=== PATIENT | female | born 1965 | race American Indian/Alaskan Native ===

== ENCOUNTER 2016-10-08 04:19 | Emergency (ER) | payer MEDICAID, OTHER ==
[2016-10-08 04:19] VITALS: BMI 32.5
[2016-10-08 04:40] VITALS: BP 116/74; PULSE 69; RESP 16; TEMP 98.7; O2SAT 98
--- NOTE | 2016-10-08 05:19 | ED PDOC ---
Lower Extremity Pain/Injury Time Seen by Provider: 10/08/16 04:52 Chief Complaint (Nursing): Lower Extremity Problem/Injury Chief Complaint (Provider): Heel pain History Per: Patient Additional Complaint(s): Pt is a 50 yo female, PMH of HTN. High cholesterol, Lupus and RA, presents to ED with complaints of left heel pain x3 weeks. Pt unable to bear weight, ambulates with limp. Past Medical History Reviewed: Nursing Documentation, Vital Signs Vital Signs: Last Vital Signs Temp 98.7 F 10/08/16 04:34 Pulse 69 10/08/16 04:34 Resp 16 10/08/16 04:34 BP 116/74 10/08/16 04:34 Pulse Ox 98 10/08/16 04:34 - Medical History PMH: Asthma, Colonic Polyps, Diverticulitis, Fractures (PELVIS), Gastritis, Gastrointestinal Ulcer, HTN, Hypercholesterolemia, Sleep Apnea (NO C-PAP) Denies: Chronic Kidney Disease, Seizures (DENIES; CYST ON TEMPORAL LOBE; NEVER HAD EEG DUE TO NO INSURANCE) - Surgical History Surgical History: Cholecystectomy, Endoscopy - Family History Family History: States: Unknown Family Hx - Living Arrangements Living Arrangements: With Family - Social History Current smoker - smoking cessation education provided: No Alcohol: Social Drugs: Denies - Immunization History Hx Tetanus Toxoid Vaccination: No Hx Influenza Vaccination: No Hx Pneumococcal Vaccination: No - Home Medications Home Medications: Ambulatory Orders Medication Instructions Recorded Aspirin [Aspirin Chewable] 81 mg PO DAILY #30 chew 07/04/15 Metoprolol Tartrate [Lopressor] 12.5 mg PO BID #60 tab 07/04/15 Nitroglycerin [Nitrostat] 0.4 mg SL PRN PRN 08/08/15 metroNIDAZOLE [Flagyl] 1 tab PO Q8H 08/08/15 Acetaminophen/Butalbital/Caf 1 tab PO TID PRN #20 tab 01/31/16 [Fioricet] Acetaminophen/Butalbital/Caf 1 tab PO TID PRN #20 tab 01/31/16 [Fioricet] Dicyclomine [Bentyl] 20 mg PO BID PRN #30 tab 03/04/16 Naproxen [Naprosyn] 1 tab PO BID PRN #60 tab 03/04/16 Ibuprofen [Motrin] 600 mg PO Q6 #20 tab 06/27/17 - Allergies Allergies/Adverse Reactions: Allergies Allergy/AdvReac Type Severity Reaction Status Date / Time amoxicillin Allergy Intermediate RASH Verified 03/04/16 17:48 ciprofloxacin [From Cipro] Allergy Intermediate RASH Verified 03/04/16 17:48 ciprofloxacin HCl Allergy Intermediate RASH Verified 03/04/16 17:48 [From Cipro] kiwi Allergy Intermediate RASH Verified 03/04/16 17:48 Sulfa (Sulfonamide Allergy Intermediate RASH Verified 03/04/16 17:48 Antibiotics) Review of Systems ROS Statement: Except As Marked, All Systems Reviewed And Found Negative Musculoskeletal: Positive for: Other (heel pain) Physical Exam - Reviewed Nursing Documentation Reviewed: Yes Vital Signs Reviewed: Yes - Physical Exam Appears: Positive for: Well, Non-toxic, No Acute Distress Head Exam: Positive for: ATRAUMATIC, NORMAL INSPECTION, NORMOCEPHALIC Skin: Positive for: Normal Color, Warm, DRY Eye Exam: Positive for: EOMI, Normal appearance, PERRL ENT: Positive for: Normal ENT Inspection Neck: Positive for: Normal, Painless ROM Cardiovascular/Chest: Positive for: Regular Rate, Rhythm Respiratory: Positive for: CNT, Normal Breath Sounds Gastrointestinal/Abdominal: Positive for: Normal Exam, Bowel Sounds, Soft Back: Positive for: Normal Inspection Extremity: Positive for: Normal ROM, Tenderness (to left heel). Negative for: Swelling Neurologic/Psych: Positive for: Alert, Oriented - ECG O2 Sat by Pulse Oximetry: 98 Medical Decision Making Medical Decision Making: Medicated with Motrin Po XR: (+) heel spur pt educated on results and demonstrated full understanding. Given podiatry follow up. Disposition - Clinical Impression Clinical Impression: Heel spur - Patient ED Disposition Is Patient to be Admitted: No - Disposition Referrals: Podiatry Clinic [Outside] Romeo Alvarenga MD [Primary Care Provider] - Disposition: Routine/Home Disposition Time: 05:54 Condition: STABLE Prescriptions: Ibuprofen [Motrin] 600 mg PO Q6 #20 tab Instructions: Heel Spur (ED)
--- NOTE | 2016-10-08 12:46 | RAD ---
PROCEDURE: Radiographs of the left calcaneus/hindfoot. HISTORY: pain COMPARISON: Comparison made with left foot radiographs 11/26/2009. TECHNIQUE: Frontal and lateral radiographs of the calcaneus. FINDINGS: No fracture or joint dislocation. No focal lesion. Small enthesophyte seen arising from the posterior plantar calcaneal surfaces. IMPRESSION: No evidence of acute displaced fracture nor dislocation. Small plantar and posterior calcaneal enthesophyte. If symptoms persist or occult fracture suspected clinically consider followup CT scan.
== END 2016-10-08 05:59 | disposition home or self-care (01) ==
LOC: H.ER 04:19
DX: M77.32 Calcaneal spur, left foot (principal); E78.00 Pure hypercholesterolemia, unspecified; G47.30 Sleep apnea, unspecified; I10 Essential (primary) hypertension; J45.909 Unspecified asthma, uncomplicated; Z79.82 Long term (current) use of aspirin

== ENCOUNTER 2017-02-09 09:44 | Emergency (ER) | payer OTHER ==
[2017-02-09 10:06] VITALS: BP 137/88; PULSE 72; RESP 16; TEMP 96.8; BMI 32.9
[2017-02-09 10:14] VITALS: O2SAT 98
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
--- NOTE | 2017-02-09 11:12 | RAD ---
PROCEDURE: Radiographs of the Lumbar Spine. HISTORY: Back pain COMPARISON: No prior. FINDINGS: BONES: There is normal alignment of the lumbar vertebral bodies. Lumbar lordosis is maintained. Vertebral bodies are normal in height. There is no acute fracture, spondylolysis or spondylolisthesis. Bone mineralization is normal. DISC SPACES: There is mild degenerative disc disease at L5-S1 with mild reduced disc height and facet arthropathy. The remaining disc heights are maintained. OTHER FINDINGS: There are no pathologic soft tissue calcifications. Both sacroiliac joints are normal. IMPRESSION: No acute fracture, spondylolysis or spondylolisthesis. Mild degenerative disc disease at L5-S1.
[2017-02-09 11:42] LABS: RBC URINE 4 /hpf (0-3); URINE BACTERIA RARE (<OCC); URINE BILIRUBIN NEGATIVE (NEGATIVE); URINE BLOOD NEGATIVE (NEGATIVE); URINE COLOR YELLOW (YELLOW); URINE GLUCOSE (UA) NEG (Normal); URINE KETONE NEGATIVE (NEGATIVE); URINE LEUKOCYTE ESTERASE TRACE Leu/uL (Negative); URINE PROTEIN NEGATIVE (NEGATIVE); URINE UROBILINOGEN 0.2-1.0 mg/dL (0.2-1.0)
[2017-02-09 11:48] LABS: WBC URINE 12 /hpf (0-5)
== END 2017-02-09 11:48 | disposition home or self-care (01) ==
LOC: H.ER 09:44
DX: M54.9 Dorsalgia, unspecified (principal); V43.52XA Car driver injured in collision with other type car in traffic accident, initial encounter; Y92.410 Unspecified street and highway as the place of occurrence of the external cause

== ENCOUNTER 2017-05-26 17:01 | Emergency (ER) | payer OTHER ==
[2017-05-26 17:01] VITALS: BMI 32.9
[2017-05-26 17:55] VITALS: BP 141/84; PULSE 60; RESP 20; TEMP 98.2; O2SAT 96
--- NOTE | 2017-05-26 19:23 | ED PDOC ---
HPI: General Adult Time Seen by Provider: 05/26/17 18:22 Chief Complaint (Nursing): ENT Problem Chief Complaint (Provider): ENT Problem History Per: Patient History/Exam Limitations: no limitations Additional Complaint(s): 51 y/o female presents to the ED complaining of dizziness that started when she woke up today. She feels like the room is spinning and is worse when sits up or lies down. Dizziness is associated with fullness in right ear, pain on right side of her head and nausea. She has used epidural for chronic headache in past with no side effects but she never had vertigo before. In addition she also complains about pain in left heel that has been on and off and she followed up with podiatry. Denies fever, vomiting, focal weakness, abdominal pain, urinary symptoms or any further medical complaints. PMD: Romeo Alvarenga MD Past Medical History Reviewed: Historical Data, Nursing Documentation, Vital Signs Vital Signs: Last Vital Signs Temp 98.2 F 05/26/17 17:52 Pulse 60 05/26/17 17:52 Resp 20 05/26/17 17:52 BP 141/84 05/26/17 17:52 Pulse Ox 96 05/26/17 19:27 - Medical History PMH: Arthritis, Asthma, Colonic Polyps, Diverticulitis, Fractures (PELVIS), Gastritis, Gastrointestinal Ulcer, HTN, Hypercholesterolemia, Sleep Apnea (NO C- PAP) Denies: Chronic Kidney Disease, Seizures (DENIES; CYST ON TEMPORAL LOBE; NEVER HAD EEG DUE TO NO INSURANCE) Comment Only: Hypothyroidism (?) - Surgical History Surgical History: Cholecystectomy, Endoscopy - Family History Family History: States: Unknown Family Hx - Immunization History Hx Tetanus Toxoid Vaccination: No Hx Influenza Vaccination: No Hx Pneumococcal Vaccination: No - Home Medications Home Medications: Ambulatory Orders Medication Instructions Recorded Aspirin [Aspirin Chewable] 81 mg PO DAILY #30 chew 07/04/15 Metoprolol Tartrate [Lopressor] 12.5 mg PO BID #60 tab 07/04/15 Nitroglycerin [Nitrostat] 0.4 mg SL PRN PRN 08/08/15 metroNIDAZOLE [Flagyl] 1 tab PO Q8H 08/08/15 Acetaminophen/Butalbital/Caf 1 tab PO TID PRN #20 tab 01/31/16 [Fioricet] Acetaminophen/Butalbital/Caf 1 tab PO TID PRN #20 tab 01/31/16 [Fioricet] Dicyclomine [Bentyl] 20 mg PO BID PRN #30 tab 03/04/16 Naproxen [Naprosyn] 1 tab PO BID PRN #60 tab 03/04/16 Ibuprofen [Motrin] 600 mg PO Q6 #20 tab 10/08/16 Ibuprofen [Motrin] 600 mg PO Q6 #20 tab 02/09/17 Meclizine HCl 50 mg PO BID PRN #30 tablet 05/26/17 - Allergies Allergies/Adverse Reactions: Allergies Allergy/AdvReac Type Severity Reaction Status Date / Time amoxicillin Allergy Intermediate RASH Verified 05/26/17 17:50 ciprofloxacin [From Cipro] Allergy Intermediate RASH Verified 05/26/17 17:50 ciprofloxacin HCl Allergy Intermediate RASH Verified 05/26/17 17:50 [From Cipro] kiwi Allergy Intermediate RASH Verified 05/26/17 17:50 Sulfa (Sulfonamide Allergy Intermediate RASH Verified 05/26/17 17:50 Antibiotics) Review of Systems ROS Statement: Except As Marked, All Systems Reviewed And Found Negative (As per hPI, otherwise negative) Constitutional: Negative for: Fever ENT: Positive for: Ear Pain (right) Gastrointestinal: Positive for: Nausea. Negative for: Vomiting, Abdominal Pain Genitourinary Female: Negative for: Dysuria, Frequency, Incontinence, Hematuria Neurological: Positive for: Headache (Right sided), Dizziness. Negative for: Weakness Physical Exam - Reviewed Nursing Documentation Reviewed: Yes Vital Signs Reviewed: Yes - Physical Exam Appears: Positive for: Non-toxic, No Acute Distress Head Exam: Positive for: ATRAUMATIC, NORMOCEPHALIC Skin: Positive for: Warm, Dry Eye Exam: Positive for: EOMI, PERRL. Negative for: Nystagmus ENT: Negative for: Pharyngeal Erythema, Tonsillar Exudate Neck: Positive for: Painless ROM, Supple Cardiovascular/Chest: Positive for: Regular Rate, Rhythm, Chest Non Tender. Negative for: Murmur Respiratory: Positive for: Normal Breath Sounds. Negative for: Respiratory Distress Gastrointestinal/Abdominal: Positive for: Soft. Negative for: Tenderness Back: Positive for: Normal Inspection. Negative for: Decreased ROM, Muscle Spasm Extremity: Positive for: Normal ROM, Other (LEFT foot: ttp plantar midfoot, no defomrity, no swelling.). Negative for: Deformity Lymphatic: Negative for: Adenopathy Neurologic/Psych: Positive for: Alert, associate manager II-XII (intact), Oriented (x3), Cerebellar Tests (normal), Other ([place] increases symptoms, but no nystagmus illicited). Negative for: Motor/Sensory Deficits, Facial Droop - Laboratory Results Result Diagrams: 05/26/17 19:24 05/26/17 19:24 - ECG O2 Sat by Pulse Oximetry: 96 (RA) Pulse Ox Interpretation: Normal Medical Decision Making Medical Decision Making: Time: 18:05 Initial Impression: dizziness, foot pain Diff: : laberintitis, BPPV, electrolyte abnormality, dehydration, anemia, plantar fasciitis, and calcaneal fracture Plan: CT Head w/o contrast EKG CMP Lipase Magnesium Phosphorous Urine dipstick Urine CBC w/ differential Antivert 50mg PO Ondansetron 4mg IVP IV insertion (saline lock) Glucose, blood, POC Reevaluation 2300 CT head unremarkable and No emergently significant lab abnormalities DW pt findings and plan of care. Stable for DC. Scribe Attestation: Documented by Stevan Kulkarni acting as a scribe for Germaine Kemp MD. Scribe Attestation: All medical record entries made by the Scribe were at my direction and personally dictated by me. I have reviewed the chart and agree that the record accurately reflects my personal performance of the history, physical exam, medical decision making, and the department course for this patient. I have also personally directed, reviewed, and agree with the discharge instructions and disposition. Disposition - Clinical Impression Clinical Impression: Dizziness - Disposition Disposition: Routine/Home Disposition Time: 23:00 Condition: STABLE Prescriptions: Meclizine HCl 50 mg PO BID PRN #30 tablet PRN Reason: Dizziness Instructions: Vertigo (ED) Forms: [facility] ED School/Work Excuse
[2017-05-26 19:30] LABS: BASO # 0.1 K/uL (0.0-0.2); EOS # 0.2 K/uL (0.0-0.7); EOS % 1.3 % (0.0-4.0); MEAN CELL VOLUME 83.3 fl (81.0-99.0); MEAN CORPUSCULAR HEMOGLOBIN 28.3 pg (27.0-31.0); MEAN CORPUSCULAR HGB CONC 33.9 g/dL (33.0-37.0); MEAN PLATELET VOLUME 8.6 fl (7.2-11.7); MONO # 1.4 K/uL (0.0-0.8); MONO % 9.2 % (0.0-10.0); NEUT # 9.7 K/uL (1.8-7.0); NEUT % 62.5 % (50.0-75.0); NRBC % 0.2 % (0.0-0.0); RBC 4.59 Mil/uL (3.80-5.20); RED CELL DISTRIBUTION WIDTH 14.1 % (11.5-14.5); WHITE BLOOD COUNT 15.4 K/uL (4.8-10.8)
[2017-05-26 20:02] LABS: ALB/GLOB RATIO 1.3 (1.0-2.1); ALBUMIN 4.5 g/dL (3.5-5.0); ALT/SGPT 29 U/L (9-52); AST/SGOT 34 U/L (14-36); BLOOD UREA NITROGEN 23 mg/dl (7-17); CALCIUM 9.1 mg/dL (8.4-10.2); GFR AFRICAN-AMERICAN > 60; GFR NON-AFRICAN AMERICAN > 60; LIPASE 490 U/L (23-300); MAGNESIUM 2.2 MG/DL (1.6-2.3)
--- NOTE | 2017-05-26 22:31 | US ---
EXAM: US Abdomen Limited, Right Upper Quadrant CLINICAL HISTORY: 51 years old, female; Abnormal findings; Abnormal lab test; Elevated lipase; Additional info: Elevated lipase eval pancreas and liver TECHNIQUE: Real-time ultrasound of the right upper quadrant with image documentation. COMPARISON: CT - ABD PELVIS W/O PO OR IV CONT 2015-04-11 16:34 FINDINGS: Liver: Enlarged, 17.9 cm. Fatty infiltration. No mass. No intrahepatic ductal dilatation. Gallbladder: Cholecystectomy. Common bile duct: No dilatation. No stones. Pancreas: Unremarkable as visualized. Right kidney: Normal echogenicity. No hydronephrosis. IMPRESSION: 1.No acute findings. 2.Non-acute findings are described above.
--- NOTE | 2017-05-27 08:31 | CT ---
PROCEDURE: CT HEAD WITHOUT CONTRAST. HISTORY: new onset vertigo COMPARISON: CT head dated 02/27/2015. TECHNIQUE: Axial computed tomography images were obtained through the head/brain without intravenous contrast. Radiation dose: Total exam DLP = 956.3 mGy-cm. This CT exam was performed using one or more of the following dose reduction techniques: Automated exposure control, adjustment of the mA and/or kV according to patient size, and/or use of iterative reconstruction technique. FINDINGS: HEMORRHAGE: No intracranial hemorrhage. BRAIN: No mass effect or edema. No atrophy or chronic microvascular ischemic changes. VENTRICLES: Unremarkable. No hydrocephalus. CALVARIUM: Unremarkable. PARANASAL SINUSES: Unremarkable as visualized. No significant inflammatory changes. MASTOID AIR CELLS: Unremarkable as visualized. No inflammatory changes. OTHER FINDINGS: None. IMPRESSION: No acute intracranial pathology.
== END 2017-05-26 23:22 | disposition home or self-care (01) ==
LOC: H.ER 17:01
DX: R42 Dizziness and giddiness (principal)
CPT/HCPCS: 70450; 76705; 80053; 81025; 83690; 83735; 84100; 85025; 96374; 99282; J2405

== ENCOUNTER 2018-02-06 10:22 | Emergency (ER) | payer OTHER ==
[2018-02-06 10:32] VITALS: BMI 34.4
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
--- NOTE | 2018-02-06 14:24 | RAD ---
Date of service: 02/06/2018 HISTORY: Chest pain COMPARISON: 05/15/2014. TECHNIQUE: Chest PA and lateral FINDINGS: LUNGS: No active pulmonary disease. PLEURA: No significant pleural effusion identified. No pneumothorax apparent. CARDIOVASCULAR: No aortic atherosclerotic calcification present. No radiographic findings to suggest acute or significant cardiovascular disease. No pulmonary vascular congestion. OSSEOUS STRUCTURES: No significant abnormalities. VISUALIZED UPPER ABDOMEN: Normal. OTHER FINDINGS: None. IMPRESSION: No active disease. No significant interval change compared to the prior examination(s).
--- NOTE | 2018-02-06 14:25 | RAD ---
PROCEDURE: Left Hip X-ray Radiographs. HISTORY: Left hip pain COMPARISON: None. FINDINGS: BONES: There are no osseous abnormalities to suggest fracture. The pelvic ring is intact. Preserved femoral-acetabular relationship. Mild and symmetrical. JOINTS: Normal. SOFT TISSUES: Normal. OTHER FINDINGS: None. IMPRESSION: No acute findings related to/accounting for the clinical presentation.
--- NOTE | 2018-02-06 14:26 | CT ---
Date of service: 02/06/2018 PROCEDURE: CT Lumbar Spine without contrast HISTORY: Back pain left side with radiculopathy COMPARISON: Lumbar spine radiographs 02/09/2017 and lumbar spine MRI 10/07/2008. TECHNIQUE: Axial computed tomography images were obtained of the lumbar spine without the use of intravenous contrast. Coronal and sagittal reformatted images were created and reviewed. Radiation dose: Total exam DLP = 1136.31 mGy-cm. This CT exam was performed using one or more of the following dose reduction techniques: Automated exposure control, adjustment of the mA and/or kV according to patient size, and/or use of iterative reconstruction technique. FINDINGS: VERTEBRAE: Normal lumbar curvature is reiterated. No fracture or spondylolisthesis identified. No spondylolysis identified. Moderate inferior lumbar facet joint degenerative arthropathy is appreciated. No destructive bony lesions identified. Prevertebral and paraspinal soft tissues appear nonfocal. Nonaneurysmal abdominal aortic calcific atherosclerotic changes are identified. DISCS/SPINAL CANAL/NEURAL FORAMINA: No gross disc herniation appreciated throughout. L1-2: Unremarkable. L2-3: Minimal disc bulging without significant stenosis resulting. No bony central canal or neural foraminal stenosis. L3-4: Limited disc bulging is appreciated without significant stenosis resulting. No bony central canal or neural foraminal stenosis. L4-5: Limited disc bulging is appreciated without significant stenosis resulting. No bony central canal or neural foraminal stenosis. Mild facet joint degenerative arthropathy appreciated. L5-S1: Limited disc bulging is appreciated without significant stenosis resulting. No bony central canal or neural foraminal stenosis. Mild facet joint degenerative arthropathy appreciated. OTHER FINDINGS: None. IMPRESSION: Stable normal lumbar lordosis without fracture or spondylolisthesis or spondylolysis. Limited disc bulging is seen throughout the lumbar spine from L2-3 to L5-S1 without significant stenosis resulting. Mild facet joint degenerative arthropathy L4-5 and L5-S1. No gross disc herniation appreciable.
[2018-02-06 14:53] VITALS: BP 114/78; PULSE 66; RESP 16; TEMP 98.2; O2SAT 100
--- NOTE | 2018-02-06 15:33 | CARD ---
APPROVED REPORT Date of service: 02/06/2018 EKG Measurement Heart [id number] <Conclusion> Sinus bradycardia Otherwise normal ECG
== END 2018-02-06 14:40 | disposition home or self-care (01) ==
LOC: H.ER 10:22 → SUPCPDRO 10:22 → H.ER 14:40
DX: R07.89 Other chest pain (principal); M54.16 Radiculopathy, lumbar region; V43.62XA Car passenger injured in collision with other type car in traffic accident, initial encounter; Y92.410 Unspecified street and highway as the place of occurrence of the external cause

== ENCOUNTER 2018-02-25 15:24 | Emergency (ER) | payer OTHER ==
[2018-02-25 15:24] VITALS: BMI 34.4
[2018-02-25 15:31] VITALS: O2SAT 99
[2018-02-25] MEDS ORDERED: Naproxen 500 MG TAB PO STA (16:08)
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
[2018-02-25] MEDS ORDERED: Naproxen 500 MG TAB PO ONE (16:24)
--- NOTE | 2018-02-25 18:35 | RAD ---
Date of service: 02/25/2018 PROCEDURE: Left Knee Radiographs. HISTORY: Pain. COMPARISON: None FINDINGS: BONES: Bone alignment and mineralization are normal. There is no acute displaced fracture or bone destruction. JOINTS: There is mild tricompartmental degenerative osteoarthrosis with reduced joint spaces, marginal osteophytes and tibial spiking, worse in the media compartment. JOINT EFFUSION: None. OTHER FINDINGS: None. IMPRESSION: No acute fracture or dislocation. Moderate tricompartmental degenerative osteoarthrosis, worse in the medial compartment.
[2018-02-25 19:08] VITALS: BP 137/80; PULSE 77; RESP 18; TEMP 97.9
== END 2018-02-25 19:00 | disposition home or self-care (01) ==
LOC: H.ER 15:24 → SUPCPDRO 15:24 → H.ER 19:00
DX: M25.512 Pain in left shoulder (principal); M17.11 Unilateral primary osteoarthritis, right knee; E78.00 Pure hypercholesterolemia, unspecified; I10 Essential (primary) hypertension

== ENCOUNTER 2018-06-09 07:24 | Emergency (ER) | payer OTHER ==
[2018-06-09 07:25] VITALS: BMI 34.4
--- NOTE | 2018-06-09 08:18 | ED PDOC ---
HPI: Chest Pain Time Seen by Provider: 06/09/18 07:42 Chief Complaint (Provider): Chest pain History Per: Patient History/Exam Limitations: no limitations Onset/Duration Of Symptoms: Hrs Current Symptoms Are (Timing): Still Present Quality: "Pain" Associated Symptoms: Nausea. denies: Dyspnea, Diaphoresis, Syncope Additional History Per: Patient Additional Complaint(s): 52yo female, with history of hypertension, comes to ER reporting a mid-sternal chest pain, present since this morning. She reports the pain has decreased in intensity, but is persistent and associated with "crampy" back and shoulder pain. She also reports nausea and an episode of vomiting; patient denies any abdominal pain. She reports she follows up with Dr. Uriarte for cardiology and recently had a cardiac CRP test done, with her risk listed at 11.7; patient states she had a stress test done in 2017, which was normal. She did not take any medications for her symptoms and offers no additional medical complaints. Of note, patient states she has had chest pain in the past, but this instance is different as the pain is persistent. PMD: Dr. Alvarenga Past Medical History Reviewed: Historical Data, Nursing Documentation, Vital Signs Vital Signs: Last Vital Signs Temp 97.8 F 06/09/18 07:36 Pulse 69 06/09/18 07:36 Resp 17 06/09/18 07:36 BP 133/75 06/09/18 07:36 Pulse Ox 96 06/09/18 07:36 - Medical History PMH: Arthritis, Asthma, Colonic Polyps, Diverticulitis, Fractures (PELVIS), Gastritis, Gastrointestinal Ulcer, HTN, Hypercholesterolemia, Sleep Apnea (NO C- PAP) Denies: Chronic Kidney Disease, Seizures (DENIES; CYST ON TEMPORAL LOBE; NEVER HAD EEG DUE TO NO INSURANCE) Comment Only: Hypothyroidism (?) - Surgical History Surgical History: Cholecystectomy, Endoscopy Other surgeries: hysterectomy - Family History Family History: States: No Known Family Hx, Unknown Family Hx - Living Arrangements Living Arrangements: With Family - Social History Current smoker - smoking cessation education provided: No Alcohol: None Drugs: Denies - Immunization History Hx Tetanus Toxoid Vaccination: No Hx Influenza Vaccination: No Hx Pneumococcal Vaccination: No - Home Medications Home Medications: Ambulatory Orders Medication Instructions Recorded RX: Aspirin [Aspirin Chewable] 81 mg PO DAILY #30 chew 07/04/15 RX: Metoprolol Tartrate [Lopressor] 12.5 mg PO BID #60 tab 07/04/15 Nitroglycerin [Nitrostat] 0.4 mg SL PRN PRN 08/08/15 metroNIDAZOLE [Flagyl] 1 tab PO Q8H 08/08/15 Acetaminophen/Butalbital/Caf 1 tab PO TID PRN #20 tab 01/31/16 [Fioricet] Acetaminophen/Butalbital/Caf 1 tab PO TID PRN #20 tab 01/31/16 [Fioricet] Dicyclomine [Bentyl] 20 mg PO BID PRN #30 tab 03/04/16 RX: Naproxen [Naprosyn] 1 tab PO BID PRN #60 tab 03/04/16 Ibuprofen [Motrin] 600 mg PO Q6 #20 tab 10/08/16 Ibuprofen [Motrin] 600 mg PO Q6 #20 tab 02/09/17 RX: Meclizine HCl 50 mg PO BID PRN #30 tablet 05/26/17 Cyclobenzaprine [Cyclobenzaprine 10 mg PO TID #10 tab 02/06/18 HCl] Naproxen [Naprosyn] 500 mg PO Q12H #20 tab 02/06/18 RX: Ibuprofen [Motrin Tab] 800 mg PO Q8 PRN #21 tab 02/25/18 - Allergies Allergies/Adverse Reactions: Allergies Allergy/AdvReac Type Severity Reaction Status Date / Time amoxicillin Allergy Intermediate RASH Verified 05/26/17 17:50 ciprofloxacin [From Cipro] Allergy Intermediate RASH Verified 05/26/17 17:50 ciprofloxacin HCl Allergy Intermediate RASH Verified 05/26/17 17:50 [From Cipro] kiwi Allergy Intermediate RASH Verified 05/26/17 17:50 Sulfa (Sulfonamide Allergy Intermediate RASH Verified 05/26/17 17:50 Antibiotics) VIVEK Risk Score for UA/NSTEMI - VIVEK Risk Score Age > 64: NO 3 or more CAD Risk Factors: NO Known CAD (Stenosis greater than 50%): NO Aspirin use in past 7 days: NO Severe Angina: NO EKG ST changes greater than 0.5mm: NO Positive Cardiac Marker: NO VIVEK Score: 0 Risk %: 5% Wells Criteria for PE - Wells Criteria for Pulmonary Embolism Clinical Signs and Symptoms of DVT: No P.E is #1 Diagnosis, or Equally Likely: No Heart Rate >100: No Immobilization at least 3 days;Surgery previous 4 weeks: No Previous, objectively diagnosed PE or DVT: No Hemoptysis: No Malignancy w/treatment within 6 months, or palliative: No Total Score: 0 Review of Systems ROS Statement: Except As Marked, All Systems Reviewed And Found Negative Constitutional: Negative for: Fever, Chills, Sweats Cardiovascular: Positive for: Chest Pain Respiratory: Negative for: Cough, Shortness of Breath Gastrointestinal: Positive for: Nausea, Vomiting. Negative for: Abdominal Pain Musculoskeletal: Positive for: Shoulder Pain, Back Pain. Negative for: Arm Pain Physical Exam - Reviewed Nursing Documentation Reviewed: Yes Vital Signs Reviewed: Yes - Physical Exam Appears: Positive for: Non-toxic, No Acute Distress Head Exam: Positive for: ATRAUMATIC, NORMAL INSPECTION, NORMOCEPHALIC Skin: Positive for: Normal Color, Warm, Dry Eye Exam: Positive for: EOMI, PERRL ENT: Negative for: Pharyngeal Erythema Neck: Positive for: Normal, Painless ROM, Supple Cardiovascular/Chest: Positive for: Regular Rate, Rhythm. Negative for: Chest Non Tender (+ mild mid-sternal and left chest wall tenderness) Respiratory: Positive for: Normal Breath Sounds. Negative for: Rales, Rhonchi, Wheezing Pulses-Radial (L): 2+ Pulses-Radial (R): 2+ Gastrointestinal/Abdominal: Positive for: Normal Exam, Soft. Negative for: Tenderness Back: Positive for: Normal Inspection Extremity: Positive for: Normal ROM. Negative for: Pedal Edema Neurologic/Psych: Positive for: Alert, Oriented. Negative for: Motor/Sensory Deficits - Laboratory Results Result Diagrams: 06/09/18 08:32 06/09/18 08:32 - ECG ECG: Positive for: Interpreted By Me, Viewed By Me ECG Rhythm: Positive for: Normal QRS, Normal ST Segment, Sinus Rhythm. Negative for: ST/T Changes Rate: 69 O2 Sat by Pulse Oximetry: 96 (RA) Pulse Ox Interpretation: Normal - Radiology X-Ray: Interpreted by Me, Viewed By Me X-Ray Interpretation: No Acute Disease Medical Decision Making Medical Decision Making: Impression: Chest pain Differential: ACS, PE, thoracic aortic dissection (less likely) plan: -- Labs -- CXR -- Aspirin 325mg PO 1246 Labs reviewed, no clinically significant abnormalities noted. Troponin < 0.0120 Discussed with patient plan for admission for observation, but she declines. Discussed with Dr. Uriarte, who states to repeat troponin and if troponin remains negative, and if patient feels well, she can be discharged home with follow up with him tomorrow. Updated plan of care discussed with patient, who is agreeable. 1426 Repeat troponin negative. Patient informed of findings, and instructed on strict follow up with Dr. Uriarte Patient is in no acute distress and is stable for discharge home. Scribe Attestation: Documented by Adeline Tamayo acting as a scribe for Nathalie Thompson MD Provider Attestation: All medical record entries made by the Scribe were at my direction and personally dictated by me. I have reviewed the chart and agree that the record accurately reflects my personal performance of the history, physical exam, medic al decision making, and the department course for this patient. I have also personally directed, reviewed, and agree with the discharge instructions and disposition. Disposition - Clinical Impression Clinical Impression: Chest pain - Patient ED Disposition Is Patient to be Admitted: No Doctor Will See Patient In The: Office Counseled Patient/Family Regarding: Studies Performed, Diagnosis, Need For Followup - Disposition Referrals: Jose Uriarte MD [Staff Provider] - Disposition: Routine/Home Disposition Time: 14:26 Condition: GOOD Additional Instructions: Take baby aspirin daily. Return within 24 hors for recurrent chest pain. Follow up with your plaster mixer tomorrow. CAROL ANN REYES, thank you for letting us take care of you today. Your provider was Nathalie Thompson MD and you were treated for CHEST PAIN. The emergency medical care you received today was directed at your acute symptoms. If you were prescribed any medication, please fill it and take as directed. It may take several days for your symptoms to resolve. Return to the Emergency Department if your symptoms worsen, do not improve, or if you have any other problems. Please contact your doctor or call one of the physicians/clinics you have been referred to that are listed on the Patient Visit Information form that is included in your discharge packet. Bring any paperwork you were given at discharge with you along with any medications you are taking to your follow up visit. Our treatment cannot replace ongoing medical care by a primary care provider outside of the emergency department. Thank you for allowing the [facility] team to be part of your care today. If you had an X-Ray or CT scan: A Radiologist will review the ED reading if any change in treatment is needed we will contact you. If you had a blood, urine, or wound culture: It will take several days for the results, if any change in treatment is needed we will contact you. If you had an STI test: It will take 48 hours for the results. Please call after 1 week if you have not heard back. Instructions: Chest Pain Forms: [employer] (Amharic), [facility] ED School/Work Excuse
[2018-06-09 08:52] LABS: BASO # 0.1 K/uL (0.0-0.2); BASO % 1.3 % (0.0-2.0); EOS # 0.2 K/uL (0.0-0.7); EOS % 2.4 % (0.0-4.0); HEMOGLOBIN 12.7 g/dL (12.0-16.0); LYMPH # 1.8 K/uL (1.0-4.3); LYMPH % 20.1 % (20.0-40.0); MEAN CELL VOLUME 83.6 fl (81.0-99.0); MEAN CORPUSCULAR HEMOGLOBIN 27.9 pg (27.0-31.0); MEAN CORPUSCULAR HGB CONC 33.4 g/dL (33.0-37.0); MEAN PLATELET VOLUME 9.2 fl (7.2-11.7); MONO # 0.6 K/uL (0.0-0.8); MONO % 6.3 % (0.0-10.0); NEUT # 6.3 K/uL (1.8-7.0); NEUT % 69.9 % (50.0-75.0); NRBC % 0.1 % (0.0-0.0); RBC 4.53 Mil/uL (3.80-5.20); RED CELL DISTRIBUTION WIDTH 13.6 % (11.5-14.5); WHITE BLOOD COUNT 9.1 K/uL (4.8-10.8)
[2018-06-09 08:53] VITALS: RESP 18
--- NOTE | 2018-06-09 08:53 | RAD ---
Date of service: 06/09/2018 HISTORY: chest pain COMPARISON: Chest radiographs 02/06/2018. FINDINGS: LUNGS: No acute cardiopulmonary disease appreciated. PLEURA: No significant pleural effusion identified, no pneumothorax apparent. CARDIOVASCULAR: No aortic atherosclerotic calcification present. Normal cardiac size. No pulmonary vascular congestion. OSSEOUS STRUCTURES: No significant abnormalities. VISUALIZED UPPER ABDOMEN: Normal. OTHER FINDINGS: None. IMPRESSION: No interval acute cardiopulmonary disease appreciated.
[2018-06-09 08:57] LABS: BLOOD UREA NITROGEN 19 mg/dl (7-17); CALCIUM 9.5 mg/dL (8.4-10.2); GFR NON-AFRICAN AMERICAN > 60
--- NOTE | 2018-06-09 12:41 | CARD ---
APPROVED REPORT Date of service: 06/09/2018 EKG Measurement Heart [id number] <Conclusion> Normal sinus rhythm with sinus arrhythmia Normal ECG
[2018-06-09 14:53] VITALS: BP 122/74; TEMP 97.7
[2018-06-09 16:19] VITALS: PULSE 69; O2SAT 96
== END 2018-06-09 14:45 | disposition home or self-care (01) ==
LOC: H.ER 07:24
DX: R07.9 Chest pain, unspecified (principal); I10 Essential (primary) hypertension; J45.909 Unspecified asthma, uncomplicated; Z88.1 Allergy status to other antibiotic agents; Z88.2 Allergy status to sulfonamides; E03.9 Hypothyroidism, unspecified